=== PATIENT | male | born 1990 | race Caucasian/White ===

== ENCOUNTER 2021-03-26 17:17 | Inpatient (IN) | payer OTHER ==
[~2021-03-26] VITALS: Ht 182.9 cm; Wt 66.9 kg
--- NOTE | 2021-03-26 17:22 | NUR ---
TO ER BED 12, BIB RA 39 FROM HOME, C/O BACK PAIN THIS MORNING AND NOW EXPERIENCING DIFFICULTY BREATHING, AAOX4, CHANGED INTO A GOWN AND ATTACHED TO MONITOR
[2021-03-26] MEDS ORDERED: DEXAMETHASONE SOD PHOSPHATE 4 MG/ML VIAL IM ONE (18:00)
[2021-03-26] MEDS ORDERED: DEXAMETHASONE SOD PHOSPHATE 10 MG/ML VIAL ONE (18:01)
--- NOTE | 2021-03-26 18:17 | NUR ---
COVID ANTIGEN SWAB DONE AND SENT
[2021-03-26] MEDS ORDERED: HYDR50CA5 PO (18:45)
[2021-03-26] MEDS ORDERED: NALT50TA PO (18:45)
[2021-03-26] MEDS ORDERED: LIDOCAINE 1% INJ 50 ML MDV IJ ONE (18:52)
[2021-03-26] MEDS ORDERED: LIDOCAINE 1%-EPI 1:100,000 20 ML VIAL ONE (18:56)
[2021-03-26 18:58] LABS: BASOPHILS # (AUTO) 0.1 K/uL (0.0-0.2); BASOPHILS % (AUTO) 0.7 % (0.0-2.0); EOSINOPHILS % (AUTO) 0.6 % (0.0-6.0); HEMATOCRIT 50 % (39-51); HEMOGLOBIN 16.7 g/dL (13.5-17.5); LYMPHOCYTES % (AUTO) 15.5 % (20.0-44.0); MEAN CORPUSCULAR HGB CONC 34 g/dl (31.0-36.0); MEAN CORPUSCULAR VOLUME 94 fL (80-96); MONOCYTES % (AUTO) 8.1 % (2.0-12.0); NEUTROPHILS # (AUTO) 9.5 K/uL (1.8-8.9); NEUTROPHILS % (AUTO) 75.1 % (43.0-81.0); PLATELET COUNT (AUTO) 328 K/uL (150-450); RED BLOOD CELL COUNT(AUTO) 5.34 MIL/uL (4.5-6.0); WHITE BLOOD COUNT (AUTO) 12.6 K/uL (4.3-11.0)
[2021-03-26] MEDS ORDERED: LIDOCAINE HCL/PF 1% 30 ML VIAL TP ONE (19:00)
[2021-03-26] MEDS ORDERED: FENTANYL PF 100MCG/2ML AMPUL IV ONE (19:00)
[2021-03-26] MEDS ORDERED: FENTANYL PF 100MCG/2ML AMPUL ONE (19:00)
[2021-03-26] MEDS ORDERED: MIDAZOLAM HCL 2 MG/2ML VIAL IV ONE (19:00)
[2021-03-26] MEDS ORDERED: MIDAZOLAM HCL 5 MG/5ML VIAL ONE (19:04)
[2021-03-26 19:08] LABS: CALCIUM, SERUM 9.7 mg/dL (8.5-10.1); POTASSIUM 4.2 mmol/L (3.5-5.1)
--- NOTE | 2021-03-26 19:20 | NUR ---
Heimlich valve placement TO R CHEST IN PLACE; INTACT. PT TOLERATING WELL
--- NOTE | 2021-03-26 19:24 | NUR ---
RAD AT BED SIDE
--- NOTE | 2021-03-26 20:29 | NUR ---
CONTACTED [employer] FOR DR TO AWAITING A CALL BACK.
--- NOTE | 2021-03-26 21:40 | NUR ---
327 IS THE BED THE PT WILL BE GOING TO PER NURSING FULL STACK PYTHON DEVELOPER.
--- NOTE | 2021-03-26 21:47 | NUR ---
ADAM DOBBINS WELT STITCH CLEANER AT BED SIDE
--- NOTE | 2021-03-26 21:50 | NUR ---
CALLED 3W; AWAITING CALL BACK FROM ZULMA LYNN
--- NOTE | 2021-03-26 21:56 | NUR ---
REPORT GIVEN TO ZULMA FOR EVA
[2021-03-26] MEDS ORDERED: Z GUARD REMEDY 2 OZ OINT TP PRN (22:00)
[2021-03-26] MEDS ORDERED: ONDANSETRON HCL/PF 4 MG/2 ML VIAL IVP PRN (22:00)
[2021-03-26] MEDS ORDERED: MAG HYDROX/AL HYDROX/SIMETH 30 ML UDC PO PRN (22:00)
[2021-03-26] MEDS ORDERED: hydrOXYzine PAMOATE 50 MG CAPSULE PO PRN (22:00)
[2021-03-26] MEDS ORDERED: ACETAMINOPHEN 325 MG TABLET PO PRN (22:00)
--- NOTE | 2021-03-26 22:00 | NUR ---
PT BEING TRANSFERRED TO 327 PER ACLS
--- NOTE | 2021-03-26 22:08 | NUR ---
PT TRANSFERRED TO 327-1 VIA ACLS PROTOCOL. VSS. ALL BELONGINGS WITH PT.
[2021-03-26] MEDS: MORPHINE SULFATE INJ 2 MG/ML DISP.SYRIN IV PRN (22:45)
[2021-03-26 23:53] VITALS: BP 102/58
[2021-03-27] VITALS: BP 102/58
[2021-03-27] MEDS ORDERED: CYCLOBENZAPRINE 10 MG TABLET PO PRN (00:30)
[2021-03-27 04:00] VITALS: BP 107/61
--- NOTE | 2021-03-27 05:22 | NUR ---
ADMITTED LAST NIGHT ALERT AND ORIENTATED X4 PLEASENT AND COOPERATIVE AMBULATED TO THE BATHROOM STEADY ON HIS LEGS AND NO SOB PATIENT WAS GIVEN A HEIMLICK VALVE RIGHT ANTERIAL CHEST WALL AND EFFECTIVELY WORKING NO SOB NO PAIN SATS 96 -98% 3 LITERS 02
[2021-03-27 06:44] LABS: BASOPHILS % (AUTO) 0.1 % (0.0-2.0); HEMATOCRIT 46 % (39-51); HEMOGLOBIN 15.3 g/dL (13.5-17.5); LYMPHOCYTES # (AUTO) 0.9 K/uL (0.8-4.8); LYMPHOCYTES % (AUTO) 7.5 % (20.0-44.0); MEAN CORPUSCULAR HGB CONC 33 g/dl (31.0-36.0); MEAN CORPUSCULAR VOLUME 93 fL (80-96); MONOCYTES # (AUTO) 0.3 K/uL (0.1-1.30); MONOCYTES % (AUTO) 2.7 % (2.0-12.0); NEUTROPHILS # (AUTO) 10.5 K/uL (1.8-8.9); NEUTROPHILS % (AUTO) 89.7 % (43.0-81.0); PLATELET COUNT (AUTO) 260 K/uL (150-450); RED BLOOD CELL COUNT(AUTO) 4.94 MIL/uL (4.5-6.0); WHITE BLOOD COUNT (AUTO) 11.7 K/uL (4.3-11.0)
[2021-03-27 07:12] LABS: CALCIUM, SERUM 9.9 mg/dL (8.5-10.1); MAGNESIUM 2.1 mg/dL (1.8-2.4); POTASSIUM 4.7 mmol/L (3.5-5.1)
--- NOTE | 2021-03-27 07:20 | NUR ---
RN OPENING NOTE RECEIVED PATIENT IN BED. ON O2 AT 3 LPM VIA NC. IN NO APPARENT DISTRESS. TELE READING SHOWS SB 50 - 60's. DENIES ANY PAIN OR DISCOMFORT AT THIS TIME. HEIMLICH VALVE PRESENT ON RCW. R AC #18 G, INTACT AND PATENT. SAFETY MEASURES MAINTAINED. CALL LIGHT WITHIN REACH. BED IS IN LOWEST POSITION, BRAKES LOCKED. SIDE RAILS UP X2. WILL CONTINUE PLAN OF CARE.
[2021-03-27] MEDS ORDERED: hydrOXYzine PAMOATE 25 MG CAPSULE PO PRN (07:30)
[2021-03-27 08:00] VITALS: BP 111/66
[2021-03-27] MEDS: NICOTINE PATCH (14MG) 14 MG PATCH.TD24 TD SCH (08:43)
[2021-03-27] MEDS: MORPHINE SULFATE INJ 2 MG/ML DISP.SYRIN IV PRN ×3 (12:24→22:54)
[2021-03-27 16:00] VITALS: BP 107/60
--- NOTE | 2021-03-27 18:56 | NUR ---
RN CLOSING NOTE PATIENT RESTING IN BED. ON O2 AT 3 LPM VIA NC. NO S/S OF RESPIRATORY DISTRESS. TELE READING SHOWS SB 50 - 60's. HEIMLICH VALVE PRESENT ON RCW. R AC #18 G, INTACT AND PATENT. ALL DUE MEDS GIVEN ORDERED. ALL NEEDS HAVE BEEN MET AND ATTENDED. SAFETY MEASURES MAINTAINED. KEPT CALL LIGHT WITHIN REACH. BED IS IN LOWEST POSITION, BRAKES LOCKED. SIDE RAILS UP X2. WILL ENDORSE CONTINUITY OF CARE TO ONCOMING SHIFT.
--- NOTE | 2021-03-27 19:00 | NUR ---
PATIENT SAFETY OFFICER OPENING NOTE RECEIVED PT IN BED, RESTING A/O X4, PT STABLE ON 4L OXYGEN VIA NC. NO S/S OF RESPIRATORY DISTRESS. PT ON SUPERVISOR MOTOR VEHICLE ASSEMBLY SB 56 WITH PAC, NO C/O PAIN AT THIS TIME. IV ACCESS IN RIGHT AC # 18. IV IS INTACT, PATENT, AND FLUSHING WELL. HEIMLICH VALVE IN PLACE. SAFETY MEASURES MAINTAINED AT ALL TIMES. BED IN LOWEST LOCKED POSITION, HOB ELEVATED, SIDE RAILS UP X2. CALL LIGHT AND TABLE WITHIN REACH. FAMILY AT BEDSIDE. WILL CONTINUE WITH PLAN OF CARE.
[2021-03-27 20:37] VITALS: BP 111/71
--- NOTE | 2021-03-27 22:54 | NUR ---
PT C/O ACHING PAIN AT 02/23, PER PT REQUEST MORPHINE 4MG/2ML IV Q4H PRN ADMINISTERED AT THIS TIME PER ORDER. WILL CONTINUE TO MONITOR
[2021-03-28 04:30] VITALS: BP 104/59
--- NOTE | 2021-03-28 06:20 | NUR ---
MUSEUM SERVICE SCHEDULER CLOSING NOTE PT RESTING IN BED COMFORTABLY AT THIS TIME, EASY TO AROUSE, SB @ 55. PT REMAINED STABLE THROUGHOUT SHIFT. ALL NEEDS, MEDICATIONS, AND CARE ADMINISTERED ANTICIPATED PER ORDER. PAIN CONTROL ADMINISTERED PER ORDER. SAFETY PRECAUTIONS IN PLACE AND MAINTAINED AT ALL TIMES. BED IN LOWEST, LOCKED POSITION, HOB ELEVATED, SIDE RAILS UP X2. CALL LIGHT AND TABLE WITHIN REACH. WILL ENDORSE TO ONCOMING NURSE FOR EVA.
--- NOTE | 2021-03-28 07:30 | NUR ---
REGISTERED CLINICAL DIETITIAN NOTES PT IN BED, ASLEEP, EASY TO AROUSE, ALERT AND ORIENTED, WITH COMPLAINT OF PAIN TO CHEST AND BACK, CALL LIGHT WITHIN REACH, NEEDS ATTENDED.
[2021-03-28 08:00] VITALS: BP 100/42
[2021-03-28] MEDS: NICOTINE PATCH (14MG) 14 MG PATCH.TD24 TD SCH (08:30)
[2021-03-28] MEDS: MORPHINE SULFATE INJ 2 MG/ML DISP.SYRIN IV PRN ×3 (08:31→20:39)
--- NOTE | 2021-03-28 10:24 | NUR ---
CORRESPONDENCE REPRESENTATIVE NOTES PT IN BED, AWAKE, ALERT AND ORIENTED, DENIES SOB, NO COMPLAINT OF PAIN AT THIS TIME, RECEIVED ORDERS FROM DR. HORNE TO CONNECT HEIMLICH VALVE TO SUCTION, NOTED AND CARRIED OUT WITH GUIDANCE AND ASSISTANCE FROM [facility] AVIONIC TECHNICIAN, PT TOLERATED WELL.
--- NOTE | 2021-03-28 13:00 | NUR ---
ALTERATIONS SUPERVISOR NOTES PT IN BED, ASLEEP, EASY TO AROUSE, NO COMPLAINT OF PAIN OR ANY DISCOMFORT, RESPIRATIONS NORMAL, CALL LIGHT WITHIN REACH, HEIMLICH VALVE CONNECTED TO SUCTION ORDERED, NO BLEEDING NOTED TO SITE, DRESSING DRY AND INTACT, NO COMPLAINT OF SHORTNESS OF BREATH, NEEDS ATTENDED.
[2021-03-28 16:00] VITALS: BP 116/76
--- NOTE | 2021-03-28 18:55 | NUR ---
CLAIMS CUSTOMER SERVICE REPRESENTATIVE NOTES PT IN BED, AWAKE, ALERT AND ORIENTED, NO COMPLAINT OF PAIN AT THIS TIME, RESPIRATIONS NORMAL, ON O2 AT 3LPM VIA N/C WITH O2 SAT OF 99%, PT ABLE TO AMBULATE TO THE BATHROOM WITH STEADY GAIT AND WITHOUT O2, PT CONNECTED BACK TO CHEST TUBE SUCTION ORDERED, CALL LIGHT WITHIN REACH, ALL NEEDS ATTENDED.
--- NOTE | 2021-03-28 19:00 | NUR ---
SPINDRAW OPERATOR OPENING NOTE RECEIVED PT IN BED, RESTING A/O X4, PT STABLE ON 3L OXYGEN VIA NC. NO S/S OF RESPIRATORY DISTRESS. PT ON ENGLISH LANGUAGE LEARNER TUTOR SB @ 58 , NO C/O PAIN AT THIS TIME. IV ACCESS IN RIGHT AC # 18. IV IS INTACT, PATENT, AND FLUSHING WELL. HEIMLICH VALVE IN PLACE. SAFETY MEASURES MAINTAINED AT ALL TIMES. BED IN LOWEST LOCKED POSITION, HOB ELEVATED, SIDE RAILS UP X2. CALL LIGHT AND TABLE WITHIN REACH. FAMILY AT BEDSIDE. WILL CONTINUE WITH PLAN OF CARE.
[2021-03-28 20:00] VITALS: BP 124/69
--- NOTE | 2021-03-28 20:39 | NUR ---
PT C/O ACHING PAIN ON HIS CHEST AND BACK AT 9/10, PER PT REQUEST MORPHINE 4MG/2ML IV Q4H PRN ADMINISTERED AT THIS TIME PER ORDER. WILL CONTINUE TO MONITOR
[2021-03-28 23:43] VITALS: BP 122/71
[2021-03-29] MEDS: ZOLPIDEM TARTRATE 5 MG TABLET PO PRN ×2 (02:17→21:35)
--- NOTE | 2021-03-29 02:17 | NUR ---
PT C/O INABILITY TO SLEEP, PER PT REQUEST AMBIEN 5MG PO HS PRN ADMINISTERED AT THIS TIME PER ORDER. WILL CONTINUE TO MONITOR.
[2021-03-29 04:00] VITALS: BP 110/64
--- NOTE | 2021-03-29 06:10 | NUR ---
INSTRUCTIONAL TECHNOLOGY FACILITATOR CLOSING NOTE PT RESTING IN BED COMFORTABLY AT THIS TIME, EASY TO AROUSE, SB @ 51. PT REMAINED STABLE THROUGHOUT SHIFT. ALL NEEDS, MEDICATIONS, AND CARE ADMINISTERED ANTICIPATED PER ORDER. PAIN CONTROL ADMINISTERED PER ORDER. SAFETY PRECAUTIONS IN PLACE AND MAINTAINED AT ALL TIMES. BED IN LOWEST, LOCKED POSITION, HOB ELEVATED, SIDE RAILS UP X2. CALL LIGHT AND TABLE WITHIN REACH. WILL ENDORSE TO ONCOMING NURSE FOR EVA.
[2021-03-29] MEDS: MORPHINE SULFATE INJ 2 MG/ML DISP.SYRIN IV PRN ×2 (06:39→15:43)
[2021-03-29 07:10] LABS: CALCIUM, SERUM 9.1 mg/dL (8.5-10.1); CREATININE 0.9 mg/dL (0.6-1.3); MAGNESIUM 2.2 mg/dL (1.8-2.4); PHOSPHORUS 4.5 mg/dL (2.5-4.9); POTASSIUM 3.9 mmol/L (3.5-5.1)
[2021-03-29 07:15] LABS: BASOPHILS % (AUTO) 0.4 % (0.0-2.0); EOSINOPHILS % (AUTO) 1.7 % (0.0-6.0); HEMATOCRIT 46 % (39-51); HEMOGLOBIN 15.4 g/dL (13.5-17.5); LYMPHOCYTES # (AUTO) 2.1 K/uL (0.8-4.8); LYMPHOCYTES % (AUTO) 30.5 % (20.0-44.0); MEAN CORPUSCULAR HGB CONC 33 g/dl (31.0-36.0); MEAN CORPUSCULAR VOLUME 94 fL (80-96); MONOCYTES # (AUTO) 0.7 K/uL (0.1-1.30); MONOCYTES % (AUTO) 9.6 % (2.0-12.0); NEUTROPHILS % (AUTO) 57.8 % (43.0-81.0); PLATELET COUNT (AUTO) 259 K/uL (150-450); WHITE BLOOD COUNT (AUTO) 6.9 K/uL (4.3-11.0)
--- NOTE | 2021-03-29 07:33 | NUR ---
RN OPENING NOTES Patient seen comfortably lying in bed, no apparent distress noted, no SOB, respirations even and unlabored, denies any pain or discomfort at this time. Safety precautions in place, brakes locked, side rails up X 2, call light left within reach, will monitor closely for any changes.
[2021-03-29 08:00] VITALS: BP 119/75
[2021-03-29] MEDS: NICOTINE PATCH (14MG) 14 MG PATCH.TD24 TD SCH (08:23)
--- NOTE | 2021-03-29 08:35 | NUR ---
x-ray tech paged regarding stat cxray order, stated that they are having emergency in er and will came up soon. Addendum: 03/29/21 at 1900 by TANYA REYES documented for 323
--- NOTE | 2021-03-29 10:30 | NUR ---
Sent a picture of pleur vac chamber to Dr. Castellano, and MD confirmed that it is the right one to use. Heimlich valve connected to pleur vac with 27mm/hg suction, no air leaks noted, no bubbles noted in the chamber, patient denies any discomfort, will continue to monitor for any changes.
[2021-03-29 12:00] VITALS: BP 114/75
[2021-03-29] MEDS: HYDROCODONE/APAP 5/325MG TABLET PO PRN ×2 (13:03→21:35)
[2021-03-29 16:00] VITALS: BP 132/69
--- NOTE | 2021-03-29 18:11 | NUR ---
RN CLOSING NOTES Patient lying in bed, AO X 4, able to make needs known, can follow simple commands. No apparent distress noted, no dizziness, no palpitations, denies any pain or discomfort at this time, respirations even and unlabored, no SOB, remained afebrile. Patient has a Heimlich valve connected to pleur vac with 27 mm/hg suction, no bubbles noted in the pleur vac chamber, no s/s of air leak at this time. Pigtail cath remained intact on patients right side of upper chest, dressings free from any bleeding, patient denies any pain or discomfort at site at this time. All due medications given per MD order, tolerating well. Pain medication given as needed per MD order when non pharmacological measures ineffective. Call light left within reach, all needs attended, kept clean and dry, safety precautions in place, brakes locked, side rails up X 2, will endorse to next shift for continuity of care.
--- NOTE | 2021-03-29 18:25 | NUR ---
Around 182, patient's visitor came out of the room saying that the "thing" in patient's chest is out. RNs and charge nurse immediately went to patient's room and patient seen standing up and holding the catheter of his Heimlich valve, catheter complete and intact, patient assisted to sit down. Per patient "I did not pull it out, it just came off I don't know how". Patient denies any respiratory distress at this time, no shortness of breath, oxygen at 98% room air. Site on left upper chest noted with no bleeding, previous dressings are intact, and tegaderm dressings placed to secure area. Dr. Castellano made aware of the situation but no response was obtained. scalloper MD gabriel Hawthorne stated to leave chest tube out and order chest xray STAT, orders noted and carried out. Fiordaliza Presley (hospitalist) made aware of the situation with new orders for chest xray STAT and put patient on oxygen at 5lpm via face mask, orders noted and carried out.
--- NOTE | 2021-03-29 18:26 | NUR ---
HIGH SPEED WARPER TENDER NOTE NOTIFIED DR HORNE OF CHEST TUBE DISPLACEMENT - NO ANSWER. NOTIFIED KITCHEN HAND DOCTOR FOR [facility]OLYN - DOCTOR STATED TO LEAVE CHEST TUBE OUT AND ORDER CHEST XRAY. ORDER NOTED AND CARRIED OUT. NOTIFIED FLETCHER HANKS - SHE STATED TO ALSO GET A CHEST XRAY AND PUT HIM ON A FACE MASK 5L O2. ORDERS NOTED AND CARRIED OUT. STILL AWAITING RESPONSE FROM DR. HORNE.
--- NOTE | 2021-03-29 18:27 | NUR ---
Patient seen comfortably lying ob bed, he is on oxygen via mask at 5lpm, tolerating well, oxygen saturation 99-100%, no shortness of breath, patient denies any pain or discomfort. Per patient he feels okay right now, instructed patient to use call light or call for help when he feels something different, verbalized understanding and gratitude.
--- NOTE | 2021-03-29 18:35 | NUR ---
x-ray tech paged regarding stat cxray order, stated that they are having emergency in er and will came up soon.
--- NOTE | 2021-03-29 19:00 | NUR ---
chest xray done, awaiting for result
--- NOTE | 2021-03-29 19:35 | NUR ---
TERRITORY REPRESENTATIVE OPENING NOTE PT A/OX4 ABLE TO MAKE NEEDS KNOWN; IN ROOM. TOLERATING O2 5LPM VIA SIMPLE MASK WELL WITH NO SOB. EXTERNAL CARDIAC TELE MONITOR READS SB AT 56. PIG TAIL HEIMLICH VALVE DISLODGED FROM RCW; PT TOLERATING WELL. RCW DRESSING KEPT C/D/I. RAC #18G S/L; PATENT AND INTACT. DENIES PAIN OR DISCOMFORT AT THIS TIME. ALL NEEDS MET. SAFETY MEASURES IN PLACE: BED IN LOWEST LOCKED POSITION; SIDE RAILS UPX2, CALL LIGHT WITHIN EASY REACH, BED ALARMS ON. PATIENT IN STABLE CONDITION, WILL CONTINUE PLAN OF CARE.
--- NOTE | 2021-03-29 19:50 | NUR ---
FREDERICK LYNN NOTE - DISLODGED PIGTAIL HEIMLICH VALVE PT NOTED WITH DISLODGED PIGTAIL HEIMLICH VALVE. NOTIFIED LATONYA GAUTHIER OF CXR RESULTS WITH ORDERS FOR CXR ON 03/30 500. ORDERS CARRIED OUT. LEVAR RIOS NURSE AWARE. Addendum: 03/29/21 at 2022 by AUGUSTINA FERNÁNDEZ RN CXR 03/30 [id number]
[2021-03-29 20:00] VITALS: BP 111/68
--- NOTE | 2021-03-29 20:13 | NUR ---
RN NOTES Sent the result of patient Chest x-ray which was negative for pneumothorax and gave an order of Chest X-ray in Am at 0600, order noted and carried out
--- NOTE | 2021-03-29 21:35 | NUR ---
DOG RACES MANAGER NOTE - PAIN AND INSOMNIA PT C/O 09/23 ABD & BACK PAIN AND NOT BEING ABLE TO FALL ASLEEP. ADMINISTERED NORCO AND AMBIEN ORDERED PER PT'S REQUEST. WILL REASSESS FOR PAIN IN 30 MINUTES AND SLEEP IN 1 HOUR.
[2021-03-30] VITALS: BP 104/52
[2021-03-30 04:00] VITALS: BP 102/63
--- NOTE | 2021-03-30 06:06 | NUR ---
GUN STOCK CHECKER CLOSING NOTE PT A/OX4 ABLE TO MAKE NEEDS KNOWN; IN ROOM. TOLERATING O2 5LPM VIA SIMPLE MASK WELL AT 100% AND WITH NO SOB. EXTERNAL CARDIAC TELE MONITOR READS SB AT 60. PIG TAIL HEIMLICH VALVE DISLODGED FROM RCW; PT TOLERATING WELL. RCW DRESSING KEPT C/D/I. RAC #18G S/L; PATENT AND INTACT. DENIES PAIN OR DISCOMFORT AT THIS TIME. ALL NEEDS MET. SAFETY MEASURES IN PLACE: BED IN LOWEST LOCKED POSITION; SIDE RAILS UPX2, CALL LIGHT WITHIN EASY REACH, BED ALARMS ON. PATIENT IN STABLE CONDITION, WILL ENDORSE PLAN OF CARE TO ONCOMING MORNING RN.
--- NOTE | 2021-03-30 07:15 | NUR ---
CORE MAN OPENING NOTE RECEIVED PATIENT ASLEEP BUT EASILY AROUSABLE. PT IS A/OX4, COHERENT. ON O2 AT 5LPM VIA MASK SATURATING AT 98% WITH NO SIGNS OF RESPIRATORY DISTRESS. WITH DRESSING COVERED WITH TEGADERM ON RIGHT UPPER CHEST WALL TO COVER PREVIOUS PIGTAIL WITH HEIMLICH VALVE PLACEMENT. NO NOTED LEAKAGE NOTED. PATIENT ON TELE MONITOR WITH SINUS MOJGAN READING AT 50'S. PATIENT WITH IV ACCESS ON THE RIGHT AC G#18, PATENT AND INTACT, ON SALINE LOCK. PATIENT DENIES ANY PAIN OR DISCOMFORT AT THIS TIME. SAFETY MEASURES ENFORCED WITH BED LOW AND LOCKED, SIDE RAILS RAISED X2, CALL LIGHT AND TABLE WITHIN REACH. WILL CONTINUE TO MONITOR PATIENT.
[2021-03-30 08:00] VITALS: BP 125/71
--- NOTE | 2021-03-30 08:30 | NUR ---
FRAUD MANAGER NOTE CHEST X RAY AND CHEST CT SCAN DONE ORDERED. AWAITING RESULT. WILL CONTINUE MONITORING PATIENT.
[2021-03-30] MEDS: NICOTINE PATCH (14MG) 14 MG PATCH.TD24 TD SCH (08:34)
--- NOTE | 2021-03-30 11:30 | NUR ---
GAMBLING SUPERVISOR NOTE SEEN BY DISHA HANKS WITH ORDERS FOR DISCHARGE. WILL WAIT FOR INSTRUCTION REGARDING DRESSING ON THE RIGHT UPPER CHEST WALL. WILL CONTINUE TO MONITOR PATIENT.
[2021-03-30 12:01] VITALS: BP 123/79
--- NOTE | 2021-03-30 12:13 | NUR ---
one suture noted and removed per dr. Parrish order from s/p chest tube site(R chest wall). No pain or discomfort noted, no bleeding or redness, dressing applied and bedside education done as well.
--- NOTE | 2021-03-30 12:15 | NUR ---
COMMUNITY MARKETING MANAGER NOTE SEEN BY DR. JUSTICE. REMOVED DRESSING AND NOTED SUTURE ON PREVIOUS INSERTION SITE. WANTS DR. HORNE TO DECIDE IF WHEN IT CAN BE REMOVED. DR. HORNE ARRIVED AND EXAMINED PATIENT AND SITE. WITH ORDER TO REMOVE SUTURE SITE. SUTURE REMOVED ORDERED, TOLERATED WELL. SITE COVERED WITH DRY DRESSING. COMFORT MEASURES PROVIDED. AWAITING CD FOR IMAGING. WILL CONTINUE TO MONITOR PATIENT.
--- NOTE | 2021-03-30 12:48 | NUR ---
PROFILE MILL OPERATOR TAPE CONTROL NOTE PATIENT DISCHARGED ORDERED. HEALTH TEACHING DONE REGARDING DISCHARGE ORDERS. VERBALIZED UNDERSTANDING AND APPRECIATION. IV ACCESS REMOVED AND TOLERATED WELL. COVERED WITH DRY DRESSING, DRY AND INTACT. PATIENT WITH FAMILY AT BEDSIDE. PATIENT REFUSED RIDING A WHEELCHAIR AND ACCOMPANIED TO THE LOBBY. PATIENT DISCHARGED ORDERED. IN STABLE CONDITION. ENDORSED ACCORDINGLY.
== END 2021-03-30 12:42 | disposition home or self-care (01) | DRG 143 ==
LOC: ER 17:30 → TELE 21:38
PROVIDERS: ADMIT Nurse Practitioner Family; ATTEND Nurse Practitioner Acute Care
PROC: 0W9930Z Drainage of Right Pleural Cavity with Drainage Device, Percutaneous Approach (ICD-10-PCS; principal; 2021-03-26)
DX: J93.9 Pneumothorax, unspecified (principal); D72.829 Elevated white blood cell count, unspecified; F10.21 Alcohol dependence, in remission; F32.A Depression, unspecified; F41.9 Anxiety disorder, unspecified; Z20.822 Contact with and (suspected) exposure to COVID-19; Z87.891 Personal history of nicotine dependence
CPT/HCPCS: 32551; 36415; 71045-TC; 71250-TC; 80048-TC; 83735-TC; 84100-TC; 85025-TC; 85730-TC; 87081-TC; C9803; G0378; G0500; J1100; J2250; J2270; J3010; J3490; Q0177